=== PATIENT | female | born 1965 | race Caucasian/White ===

== ENCOUNTER → 2019-12-20 12:20 | Outpatient (CLI) | payer BC, SELFPAY ==
--- NOTE | ~2019-12-20 | XR_ITS ---
EXAMINATION: XR chest 2V DATE: 12/20/2019 12:53 INDICATION: Shortness of breath TECHNIQUE: frontal and lateral views of the chest were obtained. COMPARISON: None FINDINGS: Small pericardial fat pad along the left heart border with linear lingular discoid atelectasis/scarri ng at the anterior left lower lung zone. No other airspace opacities, pulmonary edema, pleural effusi on or pneumothorax. The cardiomediastinal silhouette is normal. Mild thoracic spondylosis. IMPRESSION: 1. Lingular atelectasis/scarring. Reviewed, dictated and finalized at location A.
--- NOTE | ~2019-12-20 | XR_ITS ---
EXAMINATION: XR lumbar spine 2-3V DATE: 12/20/2019 12:53 INDICATION: Dorsalgia, unspecified. TECHNIQUE: 3 views of lumbar spine were obtained. COMPARISON: Lumbar spine radiographs 08/14/2014 FINDINGS: There is 4 degrees dextrocurvature of thoracolumbar spine. Vertebral body heights are cuauhtemoc l. There is mildly decreased disc height at L2-L3. There are endplate osteophytes at most levels. The re is multilevel facet joint osteoarthritis, moderate to severe in lower lumbar spine. IMPRESSION: 1. Mild lumbar spondylosis. Reviewed, dictated and finalized at location B. IMPRESSION: 1. Mild lumbar spondylosis.
== END ==
PROVIDERS: PCP Family Medicine; Visit Provider Physician Assistant
DX: R06.02 Shortness of breath (principal); M54.9 Dorsalgia, unspecified; M47.816 Spondylosis without myelopathy or radiculopathy, lumbar region; J98.11 Atelectasis
CPT/HCPCS: 71046; 72100

== ENCOUNTER → 2019-12-27 13:07 | Outpatient (CLI) | payer BC, SELFPAY ==
--- NOTE | ~2019-12-27 | XR_ITS ---
EXAMINATION: XR abdomen/kub 1V DATE: 12/28/2019 09:36 INDICATION: Abdominal distention. TECHNIQUE: A supine view of the abdomen on 2 radiographs was obtained. COMPARISON: None. FINDINGS: There are no dilated loops of bowel. There is a moderate volume of stool in the colon. Ther e is no visible urolithiasis. IMPRESSION: 1. Nonobstructive bowel gas pattern. Reviewed, dictated and finalized at location A.
== END ==
PROVIDERS: PCP Family Medicine; Visit Provider Physician Assistant
DX: R14.0 Abdominal distension (gaseous) (principal)
CPT/HCPCS: 74018

== ENCOUNTER 2020-01-21 14:48 | Outpatient (CLI) | payer BC, SELFPAY ==
--- NOTE | 2020-01-21 | ECHO_ITS ---
Patient Info Name: Lizzie Cedillo Age: 54 years : 1965 Gender: Female Ht: 64 in Wt: 231 lbs BSA: 2.23 m2 HR: 93 bpm BP: 148 / 114 mmHg Technical Quality: Good Exam Date: 01/21/2020 3:18 PM Exam Location: [facility] Patient Status: Outpatient Admit Date: 01/21/2020 Staff Ordering Physician: Bola Perkins MD Audio Engineer: Ulises Alex, BHAVYA, RT Attending Provider: Bola Perkins MD Referring Physician: Maddie BURRELL; Exam Type: CA echo doppler color flow Study Info Indications R06.02 - Shortness of breath Complete two-dimensional, color flow and Doppler transthoracic echocardiogram is performed. Summary 1. Complete two-dimensional, color flow and Doppler transthoracic echocardiogram is performed. 2. Left ventricular chamber dimension is normal. 3. Left ventricular systolic function is normal, estimated at 60-65%. 4. There is mildly increased left ventricular wall thickness. 5. The left ventricular diastolic function is grade I diastolic dysfunction. 6. E/e' 11 is mildly elevated. 7. There is small circumferential pericardial effusion. Left Ventricle E/e' 11 is mildly elevated. Left ventricular chamber dimension is normal. Left ventricular systolic function is normal, estimated at 60-65%. There is mildly increased left ventricular wall thickness. The left ventricular diastolic function is grade I diastolic dysfunction. Right Ventricle Right ventricular chamber dimension is normal. Right ventricular systolic function is normal. Left Atria Left atrial chamber dimension is normal. Right Atria Right atrial chamber dimension is normal. Aortic Valve Cannot determine number of aortic valve leaflets. The aortic valve is not well visualized. There is no aortic valve stenosis. There is no aortic valve regurgitation. Pulmonic Valve There is no pulmonic regurgitation. Mitral Valve There is no mitral valve stenosis. There is no mitral valve regurgitation. Tricuspid Valve There is no tricuspid valve regurgitation. Pericardium/Pleural There is small circumferential pericardial effusion. Inferior Vena Cava Normal inferior vena cava with >50% collapse upon inspiration consistent with normal right atrial pressure, 5 mmHg. Aorta The aortic root size at the sinus of Valsalva is normal. Left Ventricular Outflow Tract Name Value Normal LVOT 2D LVOT Diameter 1.9 cm LVOT Doppler LVOT Peak Gradient 7 mmHg LVOT Mean Gradient 4 mmHg LVOT VTI 22 cm LVOT VTI/AV VTI Ratio 0.7 LVOT Stroke Volume 60 ml LVOT CO 5.9 l/min LVOT CI 2.7 l/min/m2 Pulmonic Valve Name Value Normal PV Doppler PV Peak Gradien
--- NOTE | 2020-01-21 | ECG_ITS ---
Measurements Intervals Codorus Rate: 92 P: 33 DE: 165 QRS: 37 QRSD: 94 T: 37 QT: 351 QTc: 435 Interpretive Statements SINUS RHYTHM NORMAL ECG Electronically Signed On 01-21-2020 16:12:23 CDT by Farzad Rodriguez D.O.
== END 2020-01-21 14:49 | disposition home or self-care (01) ==
PROVIDERS: PCP Family Medicine; Visit Provider Obstetrics & Gynecology
DX: R06.02 Shortness of breath (principal)
CPT/HCPCS: 93005; 93306

== ENCOUNTER → 2020-03-25 11:59 | Outpatient (CLI) | payer BC, SELFPAY ==
--- NOTE | ~2020-03-25 | CT_ITS ---
EXAMINATION: CT abdomen pelvis w con EXAM DATE: 03/25/2020 13:13 INDICATION: R10.9 - Unspecified abdominal pain, Abd bloating/distension. Vomiting, constipation, hype rtension. Hysterectomy. TECHNIQUE: Spiral CT of the abdomen and pelvis was performed following intravenous injection of 100 m L Omnipaque 350. Axial, coronal and sagittal images were reviewed. The dose-length product (DLP) fo r this examination was 1043.17 mGy-cm. The exposure was tailored according to patient size (auto mA exposure control), and iterative reconstruction (ASIR) was used as additional dose reduction techniqu e. There is no prior study for comparison. FINDINGS: The liver, spleen, adrenal glands and pancreas are unremarkable. Gallbladder is unremarkab le. No biliary obstruction. Portal and splenic veins are patent. Kidneys enhance symmetrically. T here is no hydronephrosis. The uterus is not identified and has likely been surgically resected. T he bladder is unremarkable. There is no retroperitoneal or pelvic lymphadenopathy. There is mild s cattered arteriosclerotic disease. The appendix is normal. The stomach and small bowel are unremarkable. There is expected amount of c olonic stool. No free intraperitoneal gas. The heart is normal in size. There are no pericardial or pleural effusions. The lung bases are unremarkable. There are no osteoblastic or osteolytic les ions identified. IMPRESSION: 1. No acute intra-abdominal findings. Reviewed, dictated and finalized at location A. 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
[2020-03-25 12:57] LABS: Estimated Glomerular Filt Rate > 60
== END ==
PROVIDERS: Visit Provider Emergency Medicine
DX: R10.9 Unspecified abdominal pain (principal)
CPT/HCPCS: 74177; Q9967

== ENCOUNTER → 2020-09-17 15:37 | Outpatient (CLI) | payer BC, SELFPAY ==
--- NOTE | ~2020-09-17 | US_ITS ---
US thyroid INDICATION: Thyroid goiter TECHNIQUE: Real-time sonographic images of the thyroid gland were obtained. COMPARISON: No prior studies for comparison. FINDINGS: The right thyroid lobe measures 5.6 x 2.9 x 2.2 cm. The left thyroid lobe measures 5.3 x 2 .2 x 2.1 cm. Thyroid gland is diffusely heterogeneous. There are multiple bilateral thyroid nodules. In the left lobe there is a 1.5 x 1.2 x 1.1 cm peripherally calcified hypoechoic solid mass which is wider than tall, smooth margins, TR 4. Also in the left lobe is an oval circumscribed hypoechoic virgen d mass measuring 1.3 x 0.8 x 1.1 cm which is wider than tall, smoothly marginated without calcificati ons, TR 4. In the left lobe there is a 1 x 0.8 x 0.9 cm mixed solid and cystic hypoechoic mass which is wider than tall with circumscribed margins and no calcifications, TR 3. In the right lobe there is an ill-defined hypoechoic mass measuring 1.5 x 1.3 x 1.2 cm which appears solid, hypoechoic, wider t warner tall, ill-defined margins, TR 4. There are additional smaller masses in the right lobe. In the is thmus on the left there is a hypoechoic solid mass which is wider than tall, ill-defined margins susan uring 12 x 9 x 13 mm. There are internal calcifications, TR 5. IMPRESSION: 1. Enlarged thyroid gland containing multiple masses. Several masses meet sonographic criteria for t issue sampling including dominant masses in both lobes and the isthmus as described above in detail. Ultrasound-guided biopsies recommended. Reviewed, dictated and finalized at location A. IMPRESSION: 1. Enlarged thyroid gland containing multiple masses. Several masses meet sono graphic criteria for tissue sampling including dominant masses in both lobes an d the isthmus as described above in detail. Ultrasound-guided biopsies recommen ded.
--- NOTE | ~2020-09-17 | US_ITS ---
EXAMINATION: US retroperitoneal duplex ltd DATE: 09/17/2020 16:46 INDICATION: hypertension TECHNIQUE: Multiple grayscale, color Doppler, and pulsed Doppler images of the kidneys and renal miles duy were obtained. COMPARISON: None. FINDINGS: The aorta peak systolic velocity is 30 cm/s. The right renal artery peak systolic velocity is 76 cm/s in the proximal segment, 100 cm/s in the mid segment, and 82 cm/s in the distal segment. The left re nal artery peak systolic velocity is 113 cm/s in the proximal segment, 103 cm/s in the mid segment, a nd 86 cm/s in the distal segment. IMPRESSION: 1. No Doppler evidence of renal artery stenosis. Reviewed, dictated and finalized at location A.
== END ==
PROVIDERS: Visit Provider Internal Medicine Endocrinology, Diabetes & Metabolism
DX: E04.9 Nontoxic goiter, unspecified (principal); I10 Essential (primary) hypertension; I70.1 Atherosclerosis of renal artery
CPT/HCPCS: 76536; 93976

== ENCOUNTER 2020-10-31 13:06 | Outpatient (CLI) | payer BC, SELFPAY ==
--- NOTE | ~2020-10-31 | MR_ITS ---
EXAMINATION: MR abdomen wo/w con DATE: 10/31/2020 14:15 INDICATION: Abnormal epinephrine level. Vomiting. TECHNIQUE: Magnetic resonance imaging (MRI) of the abdomen was performed without and with 20 mL Multi Santiago intravenous contrast. Sequences included coronal and axial T2-weighted FSE, coronal LAVA-flex, coronal and axial dual-echo T1-weighted FSPGR, axial FIESTA FS, axial DWI, axial T1-weighted LAVA, an d axial STIR FSE. Postcontrast axial LAVA images were obtained in a time course. Postcontrast coronal LAVA-flex images were obtained. COMPARISON: CT abdomen and pelvis 03/25/2020 FINDINGS: There is diffuse hepatic steatosis. There is a 10 mm cyst in the liver. The gallbladder, spleen, panc reas, and left adrenal gland are normal. There are 2 masses in the right adrenal gland with the large r measuring 1.6 cm containing microscopic fat, consistent with adenomas. The kidneys are normal. Ther e are no dilated loops of bowel. There are no pathologically enlarged lymph nodes. There is no free i ntraperitoneal fluid. IMPRESSION: 1. Two right adrenal adenomas with the larger measuring 1.6 cm. 2. Diffuse hepatic steatosis. Reviewed, dictated and finalized at location A.
[2020-10-31 13:39] LABS: Estimated Glomerular Filt Rate 43
== END 2020-10-31 13:07 ==
LOC: MICIMG 13:06
PROVIDERS: Visit Provider Internal Medicine Endocrinology, Diabetes & Metabolism
DX: R89.1 Abnormal level of hormones in specimens from other organs, systems and tissues (principal); K76.0 Fatty (change of) liver, not elsewhere classified; D35.01 Benign neoplasm of right adrenal gland
CPT/HCPCS: 74183; A9577

== ENCOUNTER → 2020-12-02 14:02 | Outpatient (CLI) | payer BC, SELFPAY ==
--- NOTE | ~2020-12-02 | MR_ITS ---
EXAMINATION: MR brain/brain stem wo con DATE: 12/02/2020 15:29 INDICATION: Sensory neuropathy. Bilateral arm and leg numbness and tingling. TECHNIQUE: Magnetic resonance imaging (MRI) of the brain and brainstem was performed without intraven ous contrast. Sequences included sagittal and axial T1-weighted FSE, axial diffusion-weighted FS EPI, axial T2*-weighted GRE, axial T2-weighted FLAIR Propeller, and axial T2-weighted Propeller. Apparent diffusion coefficient (ADC) maps were created. COMPARISON: None. FINDINGS: There are scattered areas of nonspecific increased T2-weighted signal intensity in the cere bral white matter and cristhian. There is no intracranial hemorrhage, acute infarction, or abnormal intrac ranial mass lesion. The ventricles are normal in size. The orbits are normal. The paranasal sinuses a re clear. The mastoid air cells are normal. IMPRESSION: 1. Mild nonspecific cerebral white matter disease and cristhian, which likely represents chronic small ves torey ischemic disease. Reviewed, dictated and finalized at location A. IMPRESSION: 1. Mild nonspecific cerebral white matter disease and cristhian, which likely repres ents chronic small vessel ischemic disease.
== END ==
PROVIDERS: PCP Family Medicine; Visit Provider Internal Medicine Endocrinology, Diabetes & Metabolism
DX: G60.8 Other hereditary and idiopathic neuropathies (principal); R93.0 Abnormal findings on diagnostic imaging of skull and head, not elsewhere classified
CPT/HCPCS: 70551